=== PATIENT | female | born 1955 | race Caucasian/White ===

== ENCOUNTER → 2016-12-13 | Outpatient (CLI) | payer BC ==
--- NOTE | 2016-12-16 10:01 | MM ---
Reason for exam: screening (asymptomatic). Last mammogram was performed 2 years and 4 months ago. History: Patient is postmenopausal and is nulliparous. Benign stereotactic core biopsy of the right breast, July 04, 1997. Physical Findings: A clinical breast exam by your physician is recommended on an annual basis and results should be correlated with mammographic findings. MG Screening Mammo w CAD Bilateral CC and MLO view(s) were taken. XCCL view(s) were taken of the left breast. Prior study comparison: August 23, 2014, bilateral MG screening mammo w CAD. February 16, 2008, bilateral digital screening mammogram. The breast tissue is almost entirely fat. Previous mammotome biopsy in the right breast. No significant changes when compared with prior studies. ASSESSMENT: Benign, BI-RAD 2 RECOMMENDATION: Routine screening mammogram of both breasts in 1 year.
== END | disposition home or self-care (01) ==
LOC: RADMAMWWP 09:24
PROVIDERS: ATTEND Family Medicine
DX: Z12.31 Encounter for screening mammogram for malignant neoplasm of breast (principal)

== ENCOUNTER → 2018-01-16 | Outpatient (CLI) | payer BC ==
--- NOTE | 2018-01-19 11:23 | MM ---
Reason for exam: screening (asymptomatic). Last mammogram was performed 1 year and 1 month ago. History: Patient is postmenopausal and is nulliparous. Benign stereotactic core biopsy of the right breast, July 04, 1997. Physical Findings: A clinical breast exam by your physician is recommended on an annual basis and results should be correlated with mammographic findings. MG Screening Mammo w CAD Bilateral CC and MLO view(s) were taken. Prior study comparison: December 13, 2016, bilateral MG screening mammo w CAD. August 23, 2014, bilateral MG screening mammo w CAD. The breast tissue is almost entirely fat. Finding: There is a 3 mm equal density (isodense), irregular, spiculated mass located 6 cm from the nipple in the middle position of the right breast CC view. Previous mammotome biopsy in the right breast. New finding since December 13, 2016 and August 23, 2014. ASSESSMENT: Incomplete: need additional imaging evaluation, BI-RAD 0 RECOMMENDATION: Special view mammogram of the right breast. If lesion persists on supplemental views, image directed ultrasound is recommended. [facility] will attempt to contact patient to return for supplemental views and ultrasound if indicated.
== END | disposition home or self-care (01) ==
LOC: RADMAMWWP 14:51
PROVIDERS: ATTEND Family Medicine
DX: Z12.31 Encounter for screening mammogram for malignant neoplasm of breast (principal)
CPT/HCPCS: 77067

== ENCOUNTER → 2018-01-23 | Outpatient (CLI) | payer BC ==
--- NOTE | 2018-01-23 12:01 | MM ---
Reason for exam: additional evaluation requested from abnormal screening. Last mammogram was performed less than 1 month ago. History: Patient is postmenopausal and is nulliparous. Benign stereotactic core biopsy of the right breast, July 04, 1997. Physical Findings: Nurse did not find any significant physical abnormalities on exam. MG Work Up Mamm w CAD RT Spot compression CC and ML view(s) were taken of the right breast. Prior study comparison: January 16, 2018, bilateral MG screening mammo w CAD. December 13, 2016, bilateral MG screening mammo w CAD. There are scattered fibroglandular densities. Previous mammotome biopsy in the right breast. No persistent lesion. These results were verbally communicated with the patient and result sheet given to the patient on 01/23/18. ASSESSMENT: Negative, BI-RAD 1 RECOMMENDATION: Return to routine screening mammogram schedule for both breasts.
== END ==
LOC: RADMAMWWP 10:02
PROVIDERS: ATTEND Family Medicine
DX: R92.8 Other abnormal and inconclusive findings on diagnostic imaging of breast (principal)
CPT/HCPCS: 77065

== ENCOUNTER → 2019-03-29 | Outpatient (CLI) | payer BC ==
--- NOTE | 2019-03-30 13:20 | MM ---
Reason for exam: screening (asymptomatic). Last mammogram was performed 1 year and 2 months ago. History: Patient is postmenopausal and is nulliparous. Benign stereotactic core biopsy of the right breast, July 04, 1997. Physical Findings: A clinical breast exam by your physician is recommended on an annual basis and results should be correlated with mammographic findings. MG Screening Mammo w CAD Bilateral CC and MLO view(s) were taken. Prior study comparison: January 23, 2018, right breast MG work up mamm w CAD RT. January 16, 2018, bilateral MG screening mammo w CAD. Previous mammotome biopsy in the right breast. Benign appearing bilateral calcifications. No significant changes when compared with prior studies. ASSESSMENT: Benign, BI-RAD 2 RECOMMENDATION: Routine screening mammogram of both breasts in 1 year.
== END | disposition home or self-care (01) ==
LOC: RADMAMWWP 14:11
PROVIDERS: ATTEND Family Medicine
DX: Z12.31 Encounter for screening mammogram for malignant neoplasm of breast (principal)
CPT/HCPCS: 77067

== ENCOUNTER → 2020-05-25 | Outpatient (CLI) | payer BC ==
--- NOTE | 2020-05-29 11:40 | MM ---
Reason for exam: screening (asymptomatic). Last mammogram was performed 1 year and 2 months ago. History: Patient is postmenopausal and is nulliparous. Benign stereotactic core biopsy of the right breast, July 04, 1997. Physical Findings: A clinical breast exam by your physician is recommended on an annual basis and results should be correlated with mammographic findings. MG Screening Mammo w CAD Bilateral CC and MLO view(s) were taken. Prior study comparison: March 29, 2019, bilateral MG screening mammo w CAD. January 23, 2018, right breast MG work up mamm w CAD RT. There are scattered fibroglandular densities. Previous mammotome biopsy in the right breast. There is no discrete abnormality. ASSESSMENT: Benign, BI-RAD 2 RECOMMENDATION: Routine screening mammogram of both breasts in 1 year.
== END ==
LOC: RADMAMWWP 13:33
PROVIDERS: ATTEND Family Medicine
DX: Z12.31 Encounter for screening mammogram for malignant neoplasm of breast (principal); Z78.0 Asymptomatic menopausal state
CPT/HCPCS: 77067

== ENCOUNTER → 2021-08-07 | Outpatient (CLI) | payer BC ==
--- NOTE | 2021-08-08 19:04 | MM ---
Reason for Exam: Screening (asymptomatic). Last mammogram was performed 1 year(s) and 2 month(s) ago. Patient History: Menarche at age 15. Patient has no children. Left ovary removed at age 45. Right ovary removed at age 45. Hysterectomy at age 45. Postmenopausal. 07/04/1997, Benign Stereotactic Core Biopsy on the right side. Risk Values: Tyesha 5 year model risk: 2.1%. NCI Lifetime model risk: 8.4%. Prior Study Comparison: 01/23/2018 Right Diagnostic Mammogram, [facility]. 03/29/2019 Bilateral Screening Mammogram, [facility]. 05/25/2020 Bilateral Screening Mammogram, [facility]. Tissue Density: There are scattered fibroglandular densities. Findings: Analyzed By CAD. There is a 0.4 cm rounded circumscribed density within the mid lateral right breast 7 cm the nipple. There is a core marker within the upper outer right breast approximately 1.4 cm from the nodule. Overall Assessment: Incomplete: need additional imaging evaluation, BI-RAD 0 Management: Diagnostic Breast Ultrasound of the right breast. A clinical breast exam by your physician is recommended on an annual basis and results should be correlated with mammographic findings. Electronically signed and approved by: Will Finley D.O. Radiologis
== END | disposition home or self-care (01) ==
LOC: RADMAMWWP 15:28
PROVIDERS: ATTEND Family Medicine
DX: Z12.31 Encounter for screening mammogram for malignant neoplasm of breast (principal); Z78.0 Asymptomatic menopausal state; Z90.721 Acquired absence of ovaries, unilateral
CPT/HCPCS: 77067

== ENCOUNTER → 2021-08-17 | Outpatient (CLI) | payer BC ==
--- NOTE | 2021-08-17 13:24 | USB ---
Reason for Exam: Additional evaluation requested from abnormal screening. Patient History: Menarche at age 15. Patient has no children. Left ovary removed at age 45. Right ovary removed at age 45. Hysterectomy at age 45. Postmenopausal. 07/04/1997, Benign Stereotactic Core Biopsy on the right side. Risk Values: Tyesha 5 year model risk: 2.1%. NCI Lifetime model risk: 8.4%. Technique: Method: Targeted. Prior Study Comparison: 03/29/2019 Bilateral Screening Mammogram, [facility]. 05/25/2020 Bilateral Screening Mammogram, [facility]. 08/07/2021 Bilateral MG screening mammo w CAD, [facility]. Findings: The upper outer quadrant of the right breast, the axilla of the right breast and the retroareolar of the right breast were scanned. No solid or cystic masses are identified.. No abnormality to correspond to the mammographic findings of 08/07/2021 are evident. Overall Assessment: Probably benign, BI-RAD 3 Management: Diagnostic Mammogram of the right breast in 6 months. A clinical breast exam by your physician is recommended on an annual basis and results should be correlated with mammographic findings. Electronically signed and approved by: Will Finley D.O. Radiologis
== END | disposition home or self-care (01) ==
LOC: RADUSWWP 12:48
PROVIDERS: ATTEND Family Medicine
DX: R92.8 Other abnormal and inconclusive findings on diagnostic imaging of breast (principal); Z78.0 Asymptomatic menopausal state

== ENCOUNTER → 2022-03-18 | Outpatient (CLI) | payer BC ==
--- NOTE | 2022-03-18 13:30 | MM ---
Reason for Exam: Follow-up at short interval from prior study. Last screening mammogram was performed 8 month(s) ago. Patient History: Menarche at age 15. Patient has no children. Left ovary removed at age 45. Right ovary removed at age 45. Hysterectomy at age 45. Postmenopausal. 07/04/1997, Benign Stereotactic Core Biopsy on the right side. Risk Values: Tyesha 5 year model risk: 2.2%. NCI Lifetime model risk: 8.2%. Prior Study Comparison: 03/29/2019 Bilateral Screening Mammogram, [facility]. 05/25/2020 Bilateral Screening Mammogram, [facility]. 08/07/2021 Bilateral MG screening mammo w CAD, [facility]. Tissue Density: Right: There are scattered fibroglandular densities. Findings: Analyzed By CAD. Biopsy clip in the right breast is redemonstrated. There is stable 4 mm round lesion just lateral to the biopsy clip unchanged in appearance and size from most recent prior mammogram. There are tiny regional benign appearing round calcifications in the right breast upper aspect. No suspicious mass or worrisome group of microcalcification. Overall Assessment: Benign, BI-RAD 2 Management: Screening Mammogram of both breasts in 5 months. Back on schedule. Results were given to the patient verbally at the time of exam. Electronically signed and approved by: Kevan Pena M.D.
== END | disposition home or self-care (01) ==
LOC: RADMAMWWP 13:00
PROVIDERS: ATTEND Family Medicine
DX: R92.8 Other abnormal and inconclusive findings on diagnostic imaging of breast (principal); Z78.0 Asymptomatic menopausal state
CPT/HCPCS: 77065

== ENCOUNTER → 2022-03-19 | Outpatient (CLI) | payer BC ==
--- NOTE | 2022-03-19 13:11 | BD ---
EXAMINATION TYPE: Axial Bone Density DATE OF EXAM: 03/19/2022 COMPARISON: 05/28/2005 CLINICAL HISTORY: 67 years old Female. ICD-10 CODE: M89.9 disorder of bone Height: 68 Weight: 255 FRAX RISK QUESTIONS: Family History (Parent hip fracture): NO History of Fracture in Adulthood: NO Secondary Osteoporosis: NO Rheumatoid Arthritis: NO RISK FACTORS HISTORY OF: Family History of Osteoporosis: YES MOTHER Active: YES Diet low in dairy products/other sources of calcium: NO Postmenopausal woman: YES Lost more than 2 inches in height since high school: YES Frequent falls: NO Poor Health: NO Hyperparathyroidism: NO Adrenal Insufficiency: NO MEDICATIONS: Thyroid Medications: YES Which medication: Levothyroxine How Lon+ Additional Medications: YES HBP , DEPRESSION , REFLUX EXAM MEASUREMENTS: Bone mineral densitometry was performed using the PerceptiMed System. Bone mineral density as measured about the Lumbar spine is: ----- L1-L4(G/cm2): 1.2 T Score Values are as follows: ----- L1: 1.5 ----- L2: 0.0 ----- L3: 0.0 ----- L4: -0.5 ----- L1-L4: 0.2 Bone mineral density has: Increased 0.7% since study of: 05/28/2005 Bone mineral density about the R hip (g/cm2): 0.853 Bone mineral density about the L hip (g/cm2): 0.929 T Score values are as follows: -----R Neck: -1.5 -----L Neck: -0.5 -----R Total: -1.2 -----L Total: -0.6 Bone mineral density has: Decreased -24.9% since study of: 05/28/2005 FRAX%s: The graph provided illustrates a 7.9% chance for a major osteoporotic fx and a 0.8% chance fo r the hips probability for fx in 10 years time. IMPRESSION: Osteopenia (T Score between -2.5 and -1). There is slightly increased risk of fracture and the patient may be considered for treatment. Re-Screen 2-5 years. NOTE: T-SCORE=SD OF THE YOUNG ADULT MEAN.
== END | disposition home or self-care (01) ==
LOC: RADBDWWP 12:27
PROVIDERS: ATTEND Family Medicine
DX: M85.89 Other specified disorders of bone density and structure, multiple sites (principal); Z78.0 Asymptomatic menopausal state
CPT/HCPCS: 77080

== ENCOUNTER → 2022-08-08 | Outpatient (CLI) | payer MEDICARE ==
--- NOTE | 2022-08-09 08:33 | MM ---
Reason for Exam: Screening (asymptomatic). Last mammogram was performed 1 year(s) and 1 month(s) ago. Patient History: Menarche at age 15. Patient has no children. Left ovary removed at age 45. Right ovary removed at age 45. Hysterectomy at age 45. Postmenopausal. 07/04/1997, Benign Stereotactic Core Biopsy on the right side. Risk Values: Tyesha 5 year model risk: 2.2%. NCI Lifetime model risk: 8.2%. Prior Study Comparison: 05/25/2020 Bilateral Screening Mammogram, [facility]. 08/07/2021 Bilateral MG screening mammo w CAD, [facility]. 03/18/2022 Right MG diagnostic mammo RT w CAD, [facility]. Tissue Density: The breast tissue is almost entirely fat. Findings: Analyzed By CAD. There is no suspicious group of microcalcifications or new suspicious mass in either breast. Overall Assessment: Negative, BI-RAD 1 Management: Screening Mammogram of both breasts in 1 year. . Patient should continue monthly self-breast exams. A clinical breast exam by your physician is recommended on an annual basis. This exam should not preclude additional follow-up of suspicious palpable abnormalities. Note on Tyesha scores and lifetime risk: 1. A Tyesha score greater than 3% is considered moderate risk. If this is the case, consider specialist referral to assess eligibility for a risk reducing agent. 2. If overall lifetime risk for the development of breast cancer is 20% or higher, the patient may qualify for future screening with alternating mammogram and breast MRI. Electronically signed and approved by: Chaim Lizarraga M.D. Radiologis
== END | disposition home or self-care (01) ==
LOC: RADMAMWWP 12:40
PROVIDERS: ATTEND Family Medicine
DX: Z12.31 Encounter for screening mammogram for malignant neoplasm of breast (principal); Z78.0 Asymptomatic menopausal state
CPT/HCPCS: 77067

== ENCOUNTER 2022-10-07 16:26 | Emergency (ER) | payer MEDICARE ==
[2022-10-07 16:37] VITALS: RESP 18; TEMP 97.7
--- NOTE | 2022-10-07 18:44 | CT ---
EXAMINATION TYPE: CT brain jacques eaton con DATE OF EXAM: 10/07/2022 COMPARISON: 03/07/2010 HISTORY: 67-year-old female pain after Fall. CT DLP: 1635.8 mGycm Automated exposure control for dose reduction was used. Technique: Examination of the head was done in axial plane without intravenous contrast. Coronal and sagittal reconstructions performed. CT of the cervical spine was obtained in axial plane without intravenous injection of contrast mater ial. Coronal and sagittal reformatted images were obtained from the axial views for evaluation of f ractures, spinal alignment and canal. FINDINGS: Head: Due to the patient's angulation in the gantry, there is prominent dental amalgam artifact extending t hrough the posterior cranial fossa. Some motion artifact is also present. Alignment for this limitati on, there is no evidence of acute intracranial hemorrhage, acute ischemic changes, mass, mass-effect , or extra-axial fluid collection. There is no effacement of cerebral sulci or basal subarachnoid ci sterns. There is no hydrocephalus. There is no midline shift. Tilley-white matter distinction is pre served. Left nasal septal deviation. Paranasal sinuses and mastoid air cells are well pneumatized. Orbits and globes are intact. Cervical spine: Degenerative change left TMJ. No craniocervical junction abnormality, predental space widening, or pr evertebral soft tissue swelling. No acute fracture in cervical spine. Mild degenerative change of the C1 dens articulation. Mild degenerative disc disease mid to lower cervical spine along with facet and uncovertebral joint a rthropathy. Degenerative trace grade 1 retrolisthesis C4-C5. Remaining alignment is maintained. Variable [id number] neuroforaminal stenoses throughout, more moderate to severe on the left at C5-C6. Sagittal and coronal reformatted images confirm above findings. COMBINED IMPRESSION: 1. The posterior cranial fossa is suboptimally assessed due to dental amalgam artifact as a result of the patient's head tilt in the gantry. Otherwise, no acute intracranial abnormality seen. 2. No acute fracture or cervical spine. Mild to moderate spondylotic change with degenerative grade 1 retrolisthesis at C4-C5.
--- NOTE | 2022-10-07 19:26 | XR ---
EXAMINATION TYPE: XR shoulder complete 3 views RT, XR knee complete 3 views RT DATE OF EXAM: 10/07/2022 Comparison: None Clinical History: 67-year-old female pain after Trauma Findings: Right shoulder: Moderate degenerative change at the AC joint with prominent capsular hypertrophy. No acute fracture, subluxation, dislocation. Right knee: Prominent soft tissue swelling. Moderate loss of cartilage and joint space in the lateral compartment where there is tricompartmental degenerative spurring. Trace knee joint effusion. Extensor mechanism appears intact. Impression: 1. Right shoulder: Moderate AC joint OA. No acute osseous abnormality seen. If pain persists, MRI can be considered. 2. Right knee: Generalized soft tissue swelling. At least moderate lateral compartmental OA. A trace knee joint effusion is nonspecific and likely reactive to the patient's injury. No acute osseous abno rmality seen.
[2022-10-07 19:37] VITALS: BP 111/84; PULSE 65
[2022-10-07] MEDS ORDERED: BACITRACIN OINT 1 EACH PACKET TOPICAL ONE (20:11)
--- NOTE | 2022-10-07 20:16 | ED ---
General Adult HPI - General Chief complaint: Fall Stated complaint: Fall Time Seen by Provider: 10/07/22 17:32 Source: patient, EMS Mode of arrival: EMS Limitations: no limitations - History of Present Illness Initial comments: This is a 67-year-old female with a past mental history including hypertension and hyperlipidemia presents emergency department after a fall. The patient stated that she tripped over a scale at the vet office, landing on her right knee as well as hitting her head. The patient did not lose consciousness and she stated that she had pain in the left upper arm as well as the right shoulder and right knee. The patient remembered all of the events and did not complain of any significant distress or pain at this time. The patient did have a superficial laceration to the left anterior forehead. The patient was otherwise resting in bed comfortably without any acute distress. - Related Data Home Medications Medication Instructions Recorded Confirmed Cholecalciferol [Vitamin D3] 2,000 unit PO DAILY@1200 09/12/13 04/10/15 Levothyroxine Sodium [Levoxyl] 175 mcg PO DAILY 09/12/13 04/10/15 Lisinopril-Hctz 20-25 mg 1 tab PO DAILY 09/12/13 04/10/15 [Zestoretic 20-25] [place]-3 Fatty Acids 2 each PO DAILY 09/12/13 04/10/15 [Fish Oil 500 mg Softgel] Aspirin [Adult Low Dose Aspirin EC] 81 mg PO DAILY 04/06/15 04/10/15 Ferrous Sulfate [Iron (65 MG 325 mg PO DAILY 04/06/15 04/10/15 Elemental)] Lansoprazole 30 mg PO DAILY 04/06/15 04/10/15 Montelukast [Singulair] 10 mg PO DAILY 04/06/15 04/10/15 Multivitamins, Thera [Multivitamin] 1 tab PO DAILY 04/06/15 04/10/15 Allergies Allergy/AdvReac Type Severity Reaction Status Date / Time No Known Allergies Allergy Verified 10/07/22 16:37 Review of Systems ROS Statement: Those systems with pertinent positive or pertinent negative responses have been documented in the HPI. ROS Other: All systems not noted in ROS Statement are negative. Past Medical History Past Medical History: GERD/Reflux, Hypertension, Thyroid Disorder History of Any Multi-Drug Resistant Organisms: None Reported Past Surgical History: Hysterectomy, Tonsillectomy Past Anesthesia/Blood Transfusion Reactions: Postoperative Nausea & Vomiting (PONV) Past Psychological History: No Psychological Hx Reported Smoking Status: Former smoker Past Alcohol Use History: None Reported Past Drug Use History: None Reported General Exam Limitations: no limitations General appearance: alert, in no apparent distress Head exam: Present: normocephalic, normal inspection, other (3 cm laceration to the left forehead) Eye exam: Present: normal appearance, PERRL Pupils: Present: normal accommodation ENT exam: Present: normal exam, normal oropharynx, mucous membranes moist Neck exam: Present: normal inspection, other (In C collar) Respiratory exam: Present: normal lung sounds bilaterally Cardiovascular Exam: Present: regular rate, normal rhythm, normal heart sounds GI/Abdominal exam: Present: soft, normal bowel sounds Extremities exam: Present: normal inspection, full ROM Back exam: Present: normal inspection, full ROM Neurological exam: Present: alert, oriented X3, CN II-XII intact Psychiatric exam: Present: normal affect, normal mood Skin exam: Present: warm, dry Course Vital Signs 10/07/22 10/07/22 10/07/22 16:29 18:00 19:34 Temperature 97.7 F Pulse Rate 68 72 65 Respiratory 18 18 18 Rate Blood Pressure 149/80 151/85 111/84 O2 Sat by Pulse 98 99 100 Oximetry Medical Decision Making - Medical Decision Making Was pt. sent in by a medical professional or institution ([facility], [facility], urgent care, hospital, or usp...) When possible be specific @ -No Did you speak to anyone other than the patient for history (EMS, parent, family, police, friend...)? What history was obtained from this source @ -No Did you review nursing and triage notes (agree or disagree)? Why? @ -I reviewed and agree with nursing and triage notes Were old charts reviewed (outside hosp., previous admission, EMS record, old EKG, old radiological studies, urgent care reports/EKG's, usp records)? Report findings @ -No old charts were reviewed Differential Diagnosis (chest pain, altered mental status, abdominal pain women, abdominal pain men, vaginal bleeding, weakness, fever, dyspnea, syncope, headache, dizziness, GI bleed, back pain, seizure, CVA, palpatations, mental health)? @ -Intracranial hemorrhage, right shoulder strain, right shoulder contusion, right knee contusion EKG interpreted by me (3pts min.). @ -None X-rays interpreted by me (1pt min.). @ -X-ray of the right shoulder and right knee were obtained and were interpreted by myself showing moderate before meals joint osteoarthritis however no acute osseous abnormalities seen in the right shoulder. There was generalized soft tissue swelling in the right knee with at least moderate lateral compartmental osteoarthritis. There was trace joint effusion which is nonspecific. CT interpreted by me (1pt min.). @ -CT head and CT C-spine were obtained and were interpreted by myself showing a posterior cranial fossa is suboptimally assessed due to dental amalgam artifact and as a result of the patient's head tilt in the can treat. Otherwise no intracranial abnormalities seen. There was no acute fracture of the cervical spine. U/S interpreted by me (1pt. min.). @ -None done What testing was considered but not performed or refused? (CT, X-rays, U/S, labs)? Why? @ -None What meds were considered but not given or refused? Why? @ -None Did you discuss the management of the patient with other professionals (professionals i.e. , PA, [facility], lab, RT, psych nurse, social group worker, beam dyer, t eacher, property utilization officer, protective services case worker)? Give summary @ -No Was smoking cessation discussed for >3mins.? @ -No Was critical care preformed (if so, how long)? @ -No Were there social determinants of health that impacted care today? How? (Homelessness, low income, unemployed, alcoholism, drug addiction, transportation, low edu. Level, literacy, decrease access to med. care, correction, rehab)? @ -No Was there de-escalation of care discussed even if they declined (Discuss DNR or withdrawal of care, Hospice)? DNR status @ -No What co-morbidities impacted this encounter? (DM, HTN, Smoking, COPD, CAD, Cancer, CVA, ARF, Chemo, Hep., AIDS, mental health diagnosis, sleep apnea, morbid obesity)? @ -Hypertension Was patient admitted / discharged? Hospital course, mention meds given and route, prescriptions, significant lab abnormalities, going to OR and other pertinent info. @ -The patient was seen and evaluated emergency department. Physical exam, the patient was resting in bed without any acute distress. Vital signs admission were stable. Due to the nature the patient's fall and injury, imaging was obtained and no further laboratory workup was ordered at this time. All imaging was negative. The patient likely suffered abrasions and contusions secondary to the fall. The patient was stable for discharge home. The patient was advised to follow-up with her primary care physician for further workup and evaluations report back to the emergency department if her pain and significant acutely worse. The patient was agreeable to this and all of her questions were answered. The patient was discharged home in stable condition. Undiagnosed new problem with uncertain prognosis? @ -No Drug Therapy requiring intensive monitoring for toxicity (Heparin, Nitro, Insulin, Cardizem)? @ -No Were any procedures done? @ -No Diagnosis/symptom? @ -Fall, right knee contusion, left arm contusion, right shoulder strain, left forehead laceration Acute, or Chronic, or Acute on Chronic? @ -Acute Uncomplicated (without systemic symptoms) or Complicated (systemic symptoms)? @ -Uncomplicated Side effects of treatment? @ -No Exacerbation, Progression, or Severe Exacerbation? @ -No Poses a threat to life or bodily function? How? (Chest pain, [place], [place], pneumonia, PE, COPD, DKA, ARF, appy, cholecystitis, CVA, Diverticulitis, Homicidal, Suicidal, threat to staff... and all critical care pts) @ -No Disposition Clinical Impression: Fall, Knee contusion, Abrasion, Shoulder strain Disposition: HOME SELF-CARE Condition: Stable Instructions (If sedation given, give patient instructions): Abrasion (ED), Knee Pain (ED), Fall Prevention (ED) Is patient prescribed a controlled substance at d/c from ED?: No Referrals: Boris Scott MD [Primary Care Provider] - 1-2 days Time of Disposition: 19:30
== END 2022-10-07 20:36 | disposition home or self-care (01) ==
LOC: EC 16:26
DX: S01.81XA Laceration without foreign body of other part of head, initial encounter (principal); S46.911A Strain of unspecified muscle, fascia and tendon at shoulder and upper arm level, right arm, initial encounter; S80.01XA Contusion of right knee, initial encounter; S40.022A Contusion of left upper arm, initial encounter; I10 Essential (primary) hypertension; K21.9 Gastro-esophageal reflux disease without esophagitis; E07.9 Disorder of thyroid, unspecified; E78.5 Hyperlipidemia, unspecified; Z87.891 Personal history of nicotine dependence; Z79.890 Hormone replacement therapy; Z79.82 Long term (current) use of aspirin; Z79.899 Other long term (current) drug therapy; W01.118A Fall on same level from slipping, tripping and stumbling with subsequent striking against other sharp object, initial encounter
CPT/HCPCS: 12013; 70450; 72125; 99284

== ENCOUNTER → 2023-09-17 | Outpatient (CLI) | payer MEDICARE ==
--- NOTE | 2023-09-25 21:32 | MM ---
Reason for Exam: Screening (asymptomatic). Last mammogram was performed 1 year(s) and 1 month(s) ago. Patient History: Menarche at age 15. Patient has no children. Left ovary removed at age 45. Right ovary removed at age 45. Hysterectomy at age 45. Postmenopausal. 07/04/1997, Benign Stereotactic Core Biopsy on the right side. Risk Values: Tyesha 5 year model risk: 2.2%. NCI Lifetime model risk: 7.9%. Prior Study Comparison: 08/07/2021 Bilateral MG screening mammo w CAD, [facility]. 03/18/2022 Right MG diagnostic mammo RT w CAD, [facility]. 08/08/2022 Bilateral MG screening mammo w CAD, [facility]. Tissue Density: The breasts are almost entirely fatty. Findings: Analyzed By CAD. Chronic nodularity on the right. Microclip right breast from prior biopsy. Scattered benign round calcifications right greater than left. There is no suspicious group of microcalcifications or new suspicious mass in either breast. Overall Assessment: Benign, BI-RAD 2 Management: Screening Mammogram of both breasts in 1 year. . Patient should continue monthly self-breast exams. A clinical breast exam by your physician is recommended on an annual basis. This exam should not preclude additional follow-up of suspicious palpable abnormalities. Note on Tyesha scores and lifetime risk: 1. A Tyesha score greater than 3% is considered moderate risk. If this is the case, consider specialist referral to assess eligibility for a risk reducing agent. 2. If overall lifetime risk for the development of breast cancer is 20% or higher, the patient may qualify for future screening with alternating mammogram and breast MRI. Electronically signed and approved by: Antoinette Camilo M.D. Radiologist
== END | disposition home or self-care (01) ==
LOC: RADMAMWWP 12:56
PROVIDERS: ATTEND Family Medicine
DX: Z12.31 Encounter for screening mammogram for malignant neoplasm of breast (principal); Z78.0 Asymptomatic menopausal state; Z90.721 Acquired absence of ovaries, unilateral
CPT/HCPCS: 77063; 77067

== ENCOUNTER 2023-10-08 05:55 | Day surgery (SDC) | payer MEDICARE ==
[2023-10-06 14:18] VITALS: BMI 39.1
[~2023-10-08 05:55] MED LIST: LIDOCAINE 1% (10MG/ML) FOR IV START INTRADERMA PRN
[2023-10-08 06:36] VITALS: TEMP 97
[2023-10-08] MEDS: LACTATED RINGERS 1,000 ML IV SCH (06:49)
[2023-10-08] MEDS: IV FLUID CONTINUATION 1,000 ML IV ONE (06:53)
[2023-10-08] MEDS ORDERED: LIDOCAINE 1% INJ 10MG/ML (20 ML MDV) ONE (06:55)
[2023-10-08] MEDS ORDERED: PROPOFOL 10 MG/ML 20 ML VIAL IV ONE (06:55)
--- NOTE | 2023-10-08 07:25 | P.PCN ---
Date of Procedure: 10/08/23 Procedure(s) Performed: Brief history: Patient is a pleasant 68-year-old white male scheduled for an elective upper endoscopy as well as colonoscopy as a part of evaluation of GERD/Nickerson's esophagus and screening for colon cancer Procedure performed: Esophagogastroduodenoscopy with biopsy Colonoscopy with biopsy Preoperative diagnosis: GERD/Nickerson's esophagus Screening for colon cancer Anesthesia: [facility] [place] Procedure: After informed consent was obtained from the patient was brought into the endoscopy unit and IV sedation was administered by anesthesia under continuous monitoring. Initially upper endoscopy was done. The Olympus GF 160 video endoscope was inserted inserted into the mouth and esophagus intubated without any difficulty and was gradually advanced into the stomach and duodenum and carefully examined. The bulb and second part of the duodenum appeared normal. The scope was then withdrawn into the stomach adequately insufflated with air and upon careful examination the antrum and body, cardia and fundus appeared normal. The scope was then withdrawn into the esophagus. Moderate to large sized mixed paraesophageal hiatal hernia noted. The GE junction was located at 31 cm to the incisors. There was a long segment of Nickerson's esophagus extending from 22 to 31 cm from the incisors and multiple biopsies were done from this area. Rest of the esophagus appeared normal. Patient tolerated the procedure well. At this time the patient continued to remain sedation. Initial digital rectal examination was normal. Olympus CF 160 video colonoscope was then inserted into the rectum and gradually advanced to the cecum without any difficulty. Careful examination was performed as the scope was gradually being withdrawn. The prep was excellent. The cecum, ascending colon, transverse colon, descending colon, appeared normal. The sigmoid colon there was a 3 mm sessile polyp removed with cold biopsy. Scattered left-sided diverticulosis seen. Rest of the sigmoid colon and rectum appeared normal. Retroflexion was performed in the rectum and no lesions were noted. Patient tolerated the procedure well. Impression: 1. Upper endoscopy revealed long segment Nickerson's esophagus extending from 22 to 31 cm from the incisors s/p multiple biopsies had a moderate-2 large size hiatal hernia 2. Colonoscopy revealed 3 mm sigmoid colon polyp status post cold biopsy and scattered sigmoid diverticulosis Recommendations: Findings of this examination were discussed with the patient as well as her family. She was advised to follow-up with the biopsy results. If the biopsy confirms the presence of Nickerson's esophagus, recommended repeat upper endoscopy in 3 years. Continue with pantoprazole 30 mg daily and follow antireflux measures. Recommended repeat colonoscopy in 5 years based on the biopsy results.
[2023-10-08 07:37] VITALS: RESP 20
[2023-10-08 08:15] VITALS: BP 111/78; PULSE 80
== END 2023-10-08 08:15 | disposition home or self-care (01) ==
LOC: ORWHC2ENDO 05:55
PROVIDERS: ATTEND Internal Medicine Gastroenterology
DX: Z12.11 Encounter for screening for malignant neoplasm of colon (principal); K22.70 Barrett's esophagus without dysplasia; K57.30 Diverticulosis of large intestine without perforation or abscess without bleeding; K63.5 Polyp of colon; K21.9 Gastro-esophageal reflux disease without esophagitis
CPT/HCPCS: 45380; 43239; J2001; J2704; 88305; 88342

== ENCOUNTER 2024-05-21 13:39 | Day surgery (SDC) | payer MEDICARE ==
[2024-05-21] MEDS: IV FLUID CONTINUATION 1,000 ML IV ONE (14:26)
[2024-05-21 14:36] VITALS: RESP 16; TEMP 97.6
[2024-05-21] MEDS: LACTATED RINGERS 1,000 ML IV SCH (14:37)
[2024-05-21] MEDS ORDERED: PROPOFOL 10 MG/ML 20 ML VIAL IV ONE (15:46)
[2024-05-21] MEDS ORDERED: LIDOCAINE 1% INJ 10MG/ML (20 ML MDV) ONE (15:46)
--- NOTE | 2024-05-21 15:55 | P.PCN ---
Date of Procedure: 05/21/24 Procedure(s) Performed: BRIEF HISTORY: Patient is a 69-year-old, pleasant, white female scheduled for an upper endoscopy as a part of surveillance of Nickerson's esophagus. Last EGD was done in September 2023 and was noted to have long segment of Nickerson's esophagus extending from 22 to 31 cm from the incisors and biopsies revealed indefinite for dysplasia. She is not scheduled for a repeat EGD in 6 months.. PROCEDURE PERFORMED: Esophagogastroduodenoscopy with biopsy. PREOPERATIVE DIAGNOSIS: Surveillance of Nickerson's esophagus with indefinite dysplasia IV sedation per anesthesia. PROCEDURE: After informed consent was obtained, the patient was brought into the endoscopy unit. IV sedation was administered by Anesthesia under continuous monitoring. Initially the Olympus GIF-140 video endoscope was inserted into the mouth. Esophagus intubated without any difficulty. It was gradually advanced into the stomach and duodenum and carefully examined. The bulb and the second part of the duodenum appeared normal. The scope at this time was withdrawn to the stomach, adequately insufflated with air, and upon careful examination, mucosa of the antrum, body, cardia and the fundus appeared normal. The scope was then withdrawn into the esophagus. Large size hiatal hernia noted. The GE junction was located at 31 cm from the incisors. There was a long segment of Nickerson's esophagus extending from 22 to 31 cm from the incisors. Mucosa in the segment of Nickerson's esophagus appeared normal. No ulcerations or nodularity identified. Multiple biopsies were done from the distal and proximal Nickerson's esophagus to rule out dysplasia. The rest of esophagus appeared normal. There were no erosions or ulcerations seen and the patient tolerated the procedure well. IMPRESSION: 1. Long segment Nickerson's esophagus extending from 23 to 31 cm from the incisors status post multiple biopsies. 2. Large hiatal hernia. RECOMMENDATIONS: The findings of this examination were discussed with the patient as well as her family. She was advised to follow-up with the biopsy results.. Follow-up in the office in 2 weeks. If the biopsy does not show any evidence of dysplasia she can have repeat upper endoscopy in 1 year.
[2024-05-21 16:24] VITALS: BP 128/78; PULSE 76
== END 2024-05-21 16:34 | disposition home or self-care (01) ==
LOC: ORWHC2ENDO 13:39
PROVIDERS: ATTEND Internal Medicine Gastroenterology
DX: K22.70 Barrett's esophagus without dysplasia (principal); K44.9 Diaphragmatic hernia without obstruction or gangrene; I10 Essential (primary) hypertension; E07.9 Disorder of thyroid, unspecified; F32.A Depression, unspecified; K21.9 Gastro-esophageal reflux disease without esophagitis; Z79.890 Hormone replacement therapy; Z79.899 Other long term (current) drug therapy; Z90.710 Acquired absence of both cervix and uterus; Z90.89 Acquired absence of other organs
CPT/HCPCS: 88305; 43239; J2003; J2704